=== PATIENT | male | born 1985 | race Caucasian/White ===

== ENCOUNTER 2018-07-08 16:32 | Emergency (ER) | payer BC, MEDICAID, OTHER ==
[2018-07-08] MEDS ORDERED: Lidocaine 1% w/Epinephrine 1:100K 30 ML VIAL ONE (16:41)
[2018-07-08] MEDS ORDERED: Adacel (T-DAP) 0.5 ML VIAL ONE (16:41)
[2018-07-08] MEDS ORDERED: Cephalexin 500 MG CAP ONE (16:46)
[2018-07-08] MEDS ORDERED: Bacitracin Zinc 1 Packet ONE (16:57)
== END 2018-07-08 17:00 | disposition home or self-care (01) ==
LOC: MADERS 16:32
DX: S61.412A Laceration without foreign body of left hand, initial encounter (principal); W26.0XXA Contact with knife, initial encounter
CPT/HCPCS: 12001; 90471; 90715; J2001

== ENCOUNTER 2018-07-17 09:18 | Emergency (ER) | payer OTHER ==
[2018-07-17] MEDS ORDERED: Lidocaine 2% w/Epinephrine 1:200K 20 ML VIAL ONE (09:54)
[2018-07-17] MEDS ORDERED: Bacitracin Zinc 1 Packet ONE (10:29)
== END 2018-07-17 10:40 | disposition home or self-care (01) ==
LOC: MADERS 09:18
DX: S61.211D Laceration without foreign body of left index finger without damage to nail, subsequent encounter (principal)
CPT/HCPCS: 12002